=== PATIENT | male | born 1980 | race African-American/Black ===

== ENCOUNTER 2016-06-08 23:16 | Emergency (ER) | payer MEDICAID ==
[2016-06-08] MEDS ORDERED: Ondansetron 4 MG Tab.DIS PO ONE (23:35)
[2016-06-08] MEDS ORDERED: Acetaminophen 500 MG Tab PO ONE (23:36)
--- NOTE | 2016-06-08 23:53 | EDM.PDOC ---
ED HPI GI/ABDOMINAL - General Chief Complaint: Gastrointestinal Problem Stated Complaint: FLU SYMPTOMS Time Seen by Provider: 06/08/16 23:35 Source: Reports: Patient History Limitations: Reports: No limitations - History of Present Illness INITIAL COMMENTS - FREE TEXT/NARRATIVE: 35 yo black male presents with onset yesterday of nausea, diarrhea, and low grade fever. Took diphenhydramine only for sx's so far. No abdominal pain. Symptom Onset Date: 06/07/16 Timing/Duration: Reports: Hour(s):, Gradual onset Quality: Reports: cramping Severity: mild Improves with: Reports: other (none) Worsens with: Reports: other (? eating) Context: Reports: sick contact Associated Symptoms: Reports: diarrhea, fever/chills, loss of appetite, malaise , nausea/vomiting (no vomiting yet). Denies: constipation, bloody stools Treatment(s) CAT SCAN TECH: Reports: Other (see below) (diphenhydramine) ED ROS GENERAL - Review of Systems Review Of Systems: See Below Constitutional: Reports: fever, chills, malaise, decreased appetite HEENT: Reports: No symptoms Respiratory: Reports: No Symptoms Cardiovascular: Reports: No symptoms Endocrine: Reports: no symptoms GI/Abdominal: Reports: Anorexia, Diarrhea, Decreased appetite, Nausea. Denies: Abdominal pain, Black stool, Bloody stool, Constipation, Distension, Hematemesis , Hematochezia, Melena, Stool incontinence, Vomiting : Reports: no symptoms Musculoskeletal: Reports: no symptoms Skin: Reports: no symptoms Neurological: Reports: No Symptoms Psychiatric: Reports: No symptoms ED EXAM, GI/ABD - Physical Exam Exam: See Below Exam Limited By: No limitations General Appearance: alert, WD/WN, no apparent distress Eyes: bilateral: normal appearance Ears: normal external exam, normal canal, hearing grossly normal, other (L ear obstructed by cerumen) Nose: normal inspection, normal mucosa, no blood Throat/Mouth: Normal inspection, Normal lips, Normal teeth, Normal oropharynx, Normal voice, No airway compromise Head: atraumatic, normocephalic Neck: normal inspection, supple, non-tender Respiratory/Chest: no respiratory distress, lungs clear, normal breath sounds, no accessory muscle use Cardiovascular: regular rate, rhythm, no edema GI/Abdominal: normal bowel sounds, soft, non tender, no distention Back Exam: normal inspection Extremities: normal inspection, normal range of motion, non-tender, no pedal edema Neurological: alert, oriented, CN II-XII intact, normal cognition, normal gait, no motor/sensory deficits Psychiatric: normal affect, normal mood Skin Exam: Warm, Dry, Intact, Normal color, No rash Lymphatic: no adenopathy Course - Vital Signs Text/Narrative:: acetaminophen 1000 mg po, Zofran ODT 4 mg SL Orthostats-negative - Orders/Labs/Meds Orders: Active Orders 24 hr Category Date Time Status Orthostatic Vital Signs [RC] ASDIRECTED Care 06/08/16 23:36 Active Meds: Medications Discontinued Medications Generic Name Dose Route Start Last Admin Trade Name Freq PRN Reason Stop Dose Admin Acetaminophen 1,000 mg 06/08/16 23:36 Tylenol Extra Strength PO 06/08/16 23:37 ONETIME ONE Ondansetron HCl 4 mg 06/08/16 23:35 Zofran Odt PO 06/08/16 23:36 ONETIME ONE Departure - Departure Time of Disposition: 23:55 Disposition: Home, Self-Care 01 Condition: good Clinical Impression: Viral gastroenteritis - My Orders Last 24 Hours: My Active Orders 06/08/16 23:36 Orthostatic Vital Signs [RC] ASDIRECTED - Assessment/Plan Last 24 Hours: My Active Orders 06/08/16 23:36 Orthostatic Vital Signs [RC] ASDIRECTED
[2016-06-08 23:55] VITALS: BP 118/78
[2016-06-09] MEDS ORDERED: Codeine/guaiFENesin 100mg-10 MG/5 ML Soln 118 ML Bottle PO ONE
[2016-06-09] MEDS ORDERED: Ondansetron 4 MG Tab.DIS PO ONE
== END 2016-06-09 00:10 | disposition home or self-care (01) ==
LOC: FB.ED 23:16
DX: A08.4 Viral intestinal infection, unspecified (principal)
CPT/HCPCS: 99283; A9270

== ENCOUNTER 2016-10-20 09:19 | Emergency (ER) | payer MEDICAID ==
[2016-10-20 09:37] VITALS: BP 142/83
[2016-10-20] MEDS ORDERED: Albuterol 0.083% 2.5 MG/3 ML Neb Soln NEB ONE (09:42)
--- NOTE | 2016-10-20 09:57 | EDM.PDOC ---
ED HPI GENERAL MEDICAL PROBLEM - General Chief Complaint: Respiratory Problem Stated Complaint: SOB Time Seen by Provider: 10/20/16 09:40 Source of Information: Reports: Patient History Limitations: Reports: No Limitations - History of Present Illness INITIAL COMMENTS - FREE TEXT/NARRATIVE: 36 yo 1 ppd smoker mowed some of his lawn yesterday and awoke this morning with chest tightness and a cough with wheezing. This has happened in the past when he mows grass. No fever. Cough is non-productive. Onset: Today Onset Date: 10/20/16 Onset Time: 08:30 Duration: Minutes: Location: Reports: Chest Quality: Reports: Other (mild tightness) Severity: Mild Improves with: Reports: Rest Worsens with: Reports: Movement Context: Reports: Other (smoker, ? 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: Other (see below) (none) - Related Data Allergies Allergy/AdvReac Type Severity Reaction Status Date / Time No Known Allergies Allergy Verified 10/20/16 09:33 Home Meds: Home Meds Acetaminophen/Diphenhydramine [Tylenol Pm Ex-Strength Caplet] 1 each PO BEDTIME PRN 10/20/16 [History] Past Medical History - Past Health History Medical/Surgical History: Denies Medical/Surgical History Social & Family History - Tobacco Use Smoking Status *Q: Current Every Day Smoker Years of Tobacco use: 15 Packs/Tins Daily: 0.5 - Caffeine Use Caffeine Use: Reports: Coffee, Soda - Recreational Drug Use Recreational Drug Use: No ED ROS GENERAL - Review of Systems Review Of Systems: See Below Constitutional: Reports: No Symptoms HEENT: Reports: No Symptoms Respiratory: Reports: Shortness of Breath, Wheezing, Cough Cardiovascular: Reports: No Symptoms GI/Abdominal: Reports: No Symptoms Musculoskeletal: Reports: No Symptoms Skin: Reports: No Symptoms Neurological: Reports: No Symptoms Psychiatric: Reports: No Symptoms ED EXAM, GENERAL - Physical Exam Exam: See Below Exam Limited By: No Limitations General Appearance: Alert, WD/WN, No Apparent Distress Eye Exam: Bilateral Eye: Normal Inspection Ears: Normal External Exam, Normal Canal, Hearing Grossly Normal, Normal TMs Ear Exam: Bilateral Ear: Auricle Normal, Canal Normal, TM normal Nose: Normal Inspection, Normal Mucosa, No Blood Throat/Mouth: Normal Inspection, Normal Lips, Normal Oropharynx, Normal Voice, No Airway Compromise Head: Atraumatic, Normocephalic Neck: Normal Inspection, Supple Respiratory/Chest: No Respiratory Distress, No Accessory Muscle Use, Wheezing Cardiovascular: Regular Rate, Rhythm, No Edema Back Exam: Normal Inspection Extremities: Normal Inspection, Normal Range of Motion, Non-Tender, No Pedal Edema Neurological: Alert, Oriented, CN II-XII Intact, Normal Cognition, No Motor/ Sensory Deficits Psychiatric: Normal Affect, Normal Mood Skin Exam: Warm, Dry, Intact, Normal Color, No Rash Lymphatic: No Adenopathy Course - Vital Signs Text/Narrative:: albuterol neb-much improved Last Recorded V/S: Last Vital Signs Temp 36.7 C 10/20/16 09:35 Pulse 79 10/20/16 09:35 Resp 18 10/20/16 09:35 BP 142/83 H 10/20/16 09:35 Pulse Ox 95 10/20/16 09:35 - Orders/Labs/Meds Orders: Active Orders 24 hr Category Date Time Status RT Aerosol Therapy [RC] ASDIRECTED Care 10/20/16 09:42 Active Meds: Medications Discontinued Medications Generic Name Dose Route Start Last Admin Trade Name Nilsonq PRN Reason Stop Dose Admin Albuterol 2.5 mg 10/20/16 09:42 10/20/16 09:50 Proventil Neb Soln NEB 10/20/16 09:43 2.5 mg ONETIME ONE Administration Departure - Departure Time of Disposition: 09:58 Disposition: Home, Self-Care 01 Condition: Good Clinical Impression: Bronchospasm - Discharge Information Forms: ED Department Discharge - My Orders Last 24 Hours: My Active Orders 10/20/16 09:42 RT Aerosol Therapy [RC] ASDIRECTED - Assessment/Plan Last 24 Hours: My Active Orders 10/20/16 09:42 RT Aerosol Therapy [RC] ASDIRECTED
== END 2016-10-20 10:10 | disposition home or self-care (01) ==
LOC: FB.ED 09:19
DX: J98.01 Acute bronchospasm (principal); F17.210 Nicotine dependence, cigarettes, uncomplicated
CPT/HCPCS: 94664; 99285